=== PATIENT | female | born 2005 | race Caucasian/White ===

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

== ENCOUNTER → 2024-08-31 13:13 | Outpatient (CLI) | payer OTHER, SELFPAY ==
--- NOTE | 2024-08-31 13:15 | DI.RAD.S_ITS ---
PROCEDURE: FL ARTHROGRAM HIP RT INDICATIONS: Pain in rt hip TECHNIQUE: The indications, alternatives, benefits, risks, and complications of the procedure were explained to the patient. Written informed consent was obtained and placed in the chart. The hip was examined fluoroscopically with the legs fixed in slight internal rotation, and a site for needle placement chosen for entry into the hip joint from an anterior approach. Care was taken to locate the common femoral artery and vein beforehand. The skin was prepped and draped in a sterile fashion, and 1% Lidocaine infiltrated from skin down to joint capsule. A spinal needle was inserted into the joint, and a small amount of iodinated contrast media injected to confirm intra-articular placement of the needle tip. This was followed by approximately 10 mL dilute solution of a gadolinium containing MR contrast agent. The needle was removed and a dressing was applied. The patient was given postprocedural instructions and sent to the MR suite for imaging. COMPARISON: None. FINDINGS: A single fluoroscopic spot image demonstrates intra-articular location of injected iodinated contrast. IMPRESSION: Successful fluoroscopically guided administration of dilute Gadolinium solution into the hip joint for MR arthrogram. Dictated by: Levi Dahl M.D. on 08/31/2024 at 16:21 Approved by: Levi Dahl M.D. on 08/31/2024 at 16:22
--- NOTE | 2024-08-31 13:15 | DI.MRI.S_ITS ---
PROCEDURE: MR HIP RT W CON INDICATIONS: Pain in rt hip TECHNIQUE: After the administration of 10 mL of dilute intra-articular Gadolinium contrast, coronal STIR of the bony pelvis; coronal and oblique axial T1 spin echo with fat saturation, axial T2 fast spin echo with fat saturation, sagittal T1 spin echo with and without fat saturation of the involved hip. COMPARISON: [facility] [place], CR, XR PELVIS WITH LATERAL HIP RIGHT, 07/26/2024, 9:58. FINDINGS: Image quality: Excellent. Bones and joints: Marrow signal of the visualized lower lumbar spine, the sacrum, and bilateral sacroiliac joints are unremarkable. No significant degenerative changes either hip. No acute fracture or dislocation of either hip. No avascular necrosis of either femoral head. Tendons and ligaments: The right iliopsoas, adductor, and hamstring tendons are unremarkable. The right gluteal minimus and medius are remarkable. Labrum and cartilage: Anterior superior labral tear. Posterior superior labral tear. No paralabral cyst. No focal chondral defect of the right hip. Soft tissues: 3.9 cm right adnexal cyst. IMPRESSION: 1. Labral tear as described above. No paralabral cyst. Dictated by: Yoanna Guerra M.D. on 08/31/2024 at 14:44 Approved by: Yoanna Guerra M.D. on 08/31/2024 at 14:49
[2024-08-31] MEDS: SODIUM CHLORIDE 0.9 % 20 ML VIAL IV (13:53)
[2024-08-31] MEDS: LIDOCAINE 1% 20 ML INJ (13:53)
== END ==
PROVIDERS: PCP Family Medicine; Referring Provider Orthopaedic Surgery; Visit Provider Orthopaedic Surgery
DX: S73.191A Other sprain of right hip, initial encounter (principal); M25.551 Pain in right hip; N94.89 Other specified conditions associated with female genital organs and menstrual cycle
CPT/HCPCS: 27093; 73525; 73722; A9579; Q9967

== ENCOUNTER → 2025-03-29 11:21 | Outpatient (CLI) | payer OTHER, SELFPAY ==
[2025-03-29 15:04] LABS: Urine N gonorrhoeae NOT DETECTED
[2025-03-29 16:27] LABS: Urine Chlamydia NOT DETECTED
== END ==
PROVIDERS: PCP Family Medicine; Visit Provider Obstetrics & Gynecology
DX: R10.9 Unspecified abdominal pain (principal)
CPT/HCPCS: 87491; 87591